=== PATIENT | female | born 1990 | race African-American/Black ===

== ENCOUNTER 2025-02-06 01:43 | Inpatient (IN) | payer OTHER ==
[2025-02-06] VITALS (13 sets, daily range): BP systolic 116–205; BP diastolic 72–144; PULSE 106–135; RESP 14–36; TEMP 97.3–98.6; O2SAT 94–99
[~2025-02-06] VITALS: Ht 165.1 cm; Wt 66.9 kg
[~2025-02-06 01:43] MED LIST: AMLO10TA13 PO; HYDR50TA4 PO; NO HOME MEDS; clonidine PO
[2025-02-06] MEDS: labetalol 20mg/4ml (5mg/ml) syringe IV ONE ×3 (02:27→09:19)
[2025-02-06] MEDS: ondansetron/PF 4mg/2ml inj IV ONE (02:28)
[2025-02-06 02:33] LABS: BASOPHILS % (AUTO) 0.5 % (0-1); EOSINOPHILS % (AUTO) 0 % (0-6); HEMATOCRIT 45.3 % (35.0-45.0); HEMOGLOBIN 14.6 g/dl (12.0-16.0); LYMPHOCYTES # (AUTO) 0.3 X10'3 (1.1-4.8); LYMPHOCYTES % (AUTO) 5.4 % (21-51); MEAN CORPUSCULAR HEMOGLOBIN 27.2 PG (27.0-31.0); MEAN CORPUSCULAR HGB CONC 32.4 g/dL (33.0-36.5); MONOCYTES # (AUTO) 0.1 X10'3 (0-0.9); MONOCYTES % (AUTO) 1.8 % (2-12); NEUTROPHILS # (AUTO) 4.8 X10'3 (1.8-7.7); NEUTROPHILS % (AUTO) 92.3 % (42-75); PLATELET COUNT 371 X10'3 (140-440); RED BLOOD COUNT 5.39 X10'6 (4.20-5.60); RED CELL DISTRIBUTION WIDTH 17.9 % (11.5-14.5); WHITE BLOOD COUNT 5.2 X10'3 (4.5-11.0)
[2025-02-06] MEDS: enalaprilat 1.25mg/ml 2ml vial IV ONE ×2 (03:33→09:45)
[2025-02-06] MEDS: midazolam 1 mg/ML 2ml injection IV ONE (03:34)
[2025-02-06 04:12] LABS: ALANINE AMINOTRANSFERASE 58 U/L (12-78); ALBUMIN 3.8 G/DL (3.4-5.0); ALBUMIN/GLOBULIN RATIO 0.6 (1.1-1.5); ALKALINE PHOSPHATASE 169 IU/L (46-116); ANION GAP 11 (8-16); ASPARTATE AMINO TRANSFERASE 40 U/L (10-37); BILIRUBIN,TOTAL 0.7 MG/DL (0.1-1.0); BLOOD UREA NITROGEN 13 MG/DL (7-18); BUN/CREATININE RATIO 14.3 (10.0-20.0); CALCIUM 9.3 MG/DL (8.5-10.1); CHLORIDE 94 MMOL/L (99-107); CREATININE 0.91 MG/DL (0.40-0.90); GLUCOSE 175 MG/DL (70-104); POTASSIUM 3.8 MMOL/L (3.5-5.1); SODIUM 132 MMOL/L (135-145); TOTAL CARBON DIOXIDE 27.5 MMOL/L (24-32); TOTAL PROTEIN 10.1 G/DL (6.4-8.2); eCRCL 77 ML/MIN; eGFR 70 ML/MIN
[2025-02-06 04:21] LABS: MAGNESIUM 1.8 MG/DL (1.5-2.4); PRO BRAIN NATRIURETIC PEPTIDE 594 PG/ML (0-125)
[2025-02-06] MEDS: aspirin 81mg tab.chew PO ONE (04:53)
[2025-02-06] MEDS: niCARDipine-NS 40mg/200ml IVPB 200 ML IV SCH ×2 (04:54→09:46)
[2025-02-06] MEDS ORDERED: proCHLORperazine 10 MG/2 ml inj IV PRN (05:50)
[2025-02-06] MEDS ORDERED: potassium Cl 20 mEq SR tablet PO PRN (06:10)
[2025-02-06] MEDS ORDERED: magnesium sulf-water 2g/50mL 50 ML IV PRN (06:10)
[2025-02-06] MEDS ORDERED: magnesium Cl slow-release 64mg tablet PO PRN (06:10)
[2025-02-06] MEDS ORDERED: magnesium sulf-water 4G/100mL 100 ML IV PRN (06:10)
[2025-02-06] MEDS ORDERED: potassium Cl 40MEQ/1/2NS 520ml 520 ML IV PRN (06:10)
[2025-02-06] MEDS: nicotine 21mg patch - 24 hr TD ONE (06:35)
[2025-02-06] MEDS: proCHLORperazine 10 MG/2 ml inj IV ONE (06:36)
[2025-02-06] MEDS: ketorolac trometh 15mg/ml vial 15 MG/ML ML IV ONE (06:36)
[2025-02-06] MEDS: diphenhydrAMINE 50 mg/ml inj IV ONE (06:36)
[2025-02-06] MEDS: normal saline 1000ml 1,000 ML IV SCH ×2 (06:45→15:26)
[2025-02-06] MEDS ORDERED: diltiazem-NS 100mg/100ml 100 ML IV SCH (07:50)
[2025-02-06] MEDS: heparin, porcine 5000 units/ml vial SQ SCH (08:00)
[2025-02-06] MEDS: K and/or MAG REPLACEMENT MC SCH (08:00)
[2025-02-06] MEDS: diltiazem-NS 100mg/100ml 100 ML IV SCH (08:10)
[2025-02-06] MEDS: losartan 50mg tablet PO SCH (08:47)
[2025-02-06] MEDS ORDERED: morphine 2 MG/ML inj. syringe IV PRN (09:10)
[2025-02-06] MEDS: morphine 2 MG/ML inj. syringe IV PRN (09:20)
[2025-02-06 09:24] LABS: URINE AMPHETAMINE SCREEN NEGATIVE (Neg); URINE BARBITUATE SCREEN NEGATIVE (Neg); URINE BENZODIAZEPINES SCREEN POSITIVE (Neg); URINE CANNABINOID SCREEN NEGATIVE (Neg); URINE COCAINE SCREEN NEGATIVE (Neg); URINE METHADONE SCREEN NEGATIVE (Neg); URINE OPIATE SCREEN NEGATIVE (Neg); URINE PHENCYCLIDINE SCREEN NEGATIVE (Neg)
[2025-02-06] MEDS ORDERED: iohexol 300mg/ml 100ml inj. ONE (09:28)
[2025-02-06 09:43] LABS: CREATINE KINASE 203 U/L (26-192)
[2025-02-06 10:34] LABS: URINE HCG NEGATIVE (NEG)
[2025-02-06] MEDS ORDERED: UNABLE TO OBTAIN (11:13)
[2025-02-06] MEDS: amLODIPine 5mg tablet PO ONE (15:53)
[2025-02-06] MEDS ORDERED: LORazepam 2 mg/ml vial IV PRN (20:20)
[2025-02-06] MEDS: diazepam 2mg tablet PO PRN (21:30)
[2025-02-07] VITALS (15 sets, daily range): BP systolic 100–196; BP diastolic 40–130; PULSE 96–117; RESP 14–40; TEMP 98.2–100; O2SAT 90–100
[2025-02-07] MEDS: losartan 50mg tablet PO ONE (04:23)
[2025-02-07] MEDS: losartan 50mg tablet PO SCH (07:28)
[2025-02-07] MEDS: HYDROchlorothiazide 12.5mg capsule PO SCH (07:28)
[2025-02-07] MEDS: metoprolol tartrate 1mg/ml inj IV ONE (10:55)
[2025-02-07] MEDS: bisacodyl 10mg suppository rectal RC STA (16:05)
[2025-02-07 17:09] LABS: ALANINE AMINOTRANSFERASE 46 U/L (12-78); ALBUMIN 3.3 G/DL (3.4-5.0); ALBUMIN/GLOBULIN RATIO 0.7 (1.1-1.5); ALKALINE PHOSPHATASE 123 IU/L (46-116); ANION GAP 8 (8-16); ASPARTATE AMINO TRANSFERASE 67 U/L (10-37); BLOOD UREA NITROGEN 28 MG/DL (7-18); BUN/CREATININE RATIO 19.4 (10.0-20.0); CALCIUM 8.9 MG/DL (8.5-10.1); CHLORIDE 99 MMOL/L (99-107); CHOL/HDL RATIO 2.4 (0.00-4.99); CHOLESTEROL 193 MG/DL (0-200); CREATININE 1.44 MG/DL (0.40-0.90); GLUCOSE 77 MG/DL (70-104); HDL CHOLESTEROL 79 MG/DL (35-60); LDL CHOLESTEROL 90 MG/DL (50-100); MAGNESIUM 2.3 MG/DL (1.5-2.4); PHOSPHORUS 2.6 MG/DL (2.3-4.5); POTASSIUM 3.6 MMOL/L (3.5-5.1); SODIUM 132 MMOL/L (135-145); TOTAL CARBON DIOXIDE 25.5 MMOL/L (24-32); TOTAL PROTEIN 8.2 G/DL (6.4-8.2); TRIGLYCERIDES 108 MG/DL (20-135); eCRCL 49 ML/MIN; eGFR 50 ML/MIN
[2025-02-07 17:22] LABS: BILIRUBIN,TOTAL 0.4 MG/DL (0.1-1.0)
[2025-02-07] MEDS: acetaminophen 325mg tablet PO ONE (23:57)
[2025-02-07] MEDS: amLODIPine 5mg tablet PO ONE (23:57)
[2025-02-08] VITALS (15 sets, daily range): BP systolic 90–198; BP diastolic 43–139; PULSE 73–111; RESP 14–28; TEMP 97.5–98.4; O2SAT 98–100
[2025-02-08] MEDS: labetalol 20mg/4ml (5mg/ml) syringe IV ONE (05:45)
[2025-02-08] MEDS: labetalol 20mg/4ml (5mg/ml) syringe IV STA (07:43)
[2025-02-08] MEDS: labetalol 100mg tablet PO SCH (07:44)
[2025-02-08] MEDS: hyDRALAzine 10mg tablet PO SCH (07:45)
[2025-02-08] MEDS: amLODIPine 5mg tablet PO SCH (07:45)
[2025-02-08 08:15] LABS: BASOPHILS % (AUTO) 0.6 % (0-1); EOSINOPHILS % (AUTO) 0.1 % (0-6); HEMATOCRIT 38.3 % (35.0-45.0); HEMOGLOBIN 12.7 g/dl (12.0-16.0); LYMPHOCYTES # (AUTO) 1.5 X10'3 (1.1-4.8); LYMPHOCYTES % (AUTO) 21.3 % (21-51); MEAN CORPUSCULAR HEMOGLOBIN 27.3 PG (27.0-31.0); MEAN CORPUSCULAR HGB CONC 33.1 g/dL (33.0-36.5); MEAN CORPUSCULAR VOLUME 82.5 FL (78-98); MONOCYTES # (AUTO) 0.7 X10'3 (0-0.9); MONOCYTES % (AUTO) 9.6 % (2-12); NEUTROPHILS # (AUTO) 4.7 X10'3 (1.8-7.7); NEUTROPHILS % (AUTO) 68.4 % (42-75); PLATELET COUNT 375 X10'3 (140-440); RED BLOOD COUNT 4.64 X10'6 (4.20-5.60); RED CELL DISTRIBUTION WIDTH 17.6 % (11.5-14.5); WHITE BLOOD COUNT 6.9 X10'3 (4.5-11.0)
[2025-02-08 08:52] LABS: ALANINE AMINOTRANSFERASE 38 U/L (12-78); ALBUMIN/GLOBULIN RATIO 0.6 (1.1-1.5); ALKALINE PHOSPHATASE 111 IU/L (46-116); ANION GAP 7 (8-16); ASPARTATE AMINO TRANSFERASE 49 U/L (10-37); BILIRUBIN,TOTAL 0.4 MG/DL (0.1-1.0); BLOOD UREA NITROGEN 16 MG/DL (7-18); BUN/CREATININE RATIO 17.2 (10.0-20.0); CALCIUM 8.4 MG/DL (8.5-10.1); CHLORIDE 100 MMOL/L (99-107); CREATININE 0.93 MG/DL (0.40-0.90); GLUCOSE 113 MG/DL (70-104); POTASSIUM 3.2 MMOL/L (3.5-5.1); SODIUM 134 MMOL/L (135-145); eCRCL 75 ML/MIN; eGFR 83 ML/MIN
[2025-02-08 08:54] LABS: MAGNESIUM 2.1 MG/DL (1.5-2.4); PHOSPHORUS 2.7 MG/DL (2.3-4.5)
[2025-02-08] MEDS: potassium Cl 20 mEq SR tablet PO PRN (13:08)
[2025-02-08] MEDS ORDERED: naloxone 0.4 mg/ml inj IV PRN (13:30)
[2025-02-08] MEDS ORDERED: mineral oil 133ml enema RC PRN (13:30)
[2025-02-08] MEDS: sennosides/docusate sodium tablet PO ONE (14:19)
[2025-02-08] MEDS: nicotine 21mg patch - 24 hr TD ONE (17:45)
[2025-02-08] MEDS: sennosides/docusate sodium tablet PO SCH (19:49)
[2025-02-09 02:00] VITALS: BP 157/91; PULSE 89; RESP 23; TEMP 97.5; O2SAT 100
[2025-02-09] MEDS: morphine 2 MG/ML inj. syringe IM ONE (04:23)
[2025-02-09 06:30] VITALS: BP 170/127; PULSE 100; RESP 12; TEMP 97.5; O2SAT 100
[2025-02-09] MEDS ORDERED: nicotine 21mg patch - 24 hr TD SCH (08:00)
== END 2025-02-09 06:55 | disposition left against medical advice (07) | DRG 280 ==
LOC: EDBD 01:45 → ER 01:45 → ED HOLD 05:28 → PCU 3S 11:45
PROVIDERS: ADMIT Internal Medicine; ATTEND Internal Medicine
PROC: BW211ZZ Computerized Tomography (CT Scan) of Abdomen and Pelvis using Low Osmolar Contrast (ICD-10-PCS; principal; 2025-02-06)
DX: I16.1 Hypertensive emergency (principal); N17.0 Acute kidney failure with tubular necrosis; I21.A1 Myocardial infarction type 2; E87.1 Hypo-osmolality and hyponatremia; F17.210 Nicotine dependence, cigarettes, uncomplicated; E86.0 Dehydration; I10 Essential (primary) hypertension; Z53.21 Procedure and treatment not carried out due to patient leaving prior to being seen by health care provider; F19.10 Other psychoactive substance abuse, uncomplicated
CPT/HCPCS: 36415; 71045; 74177; 80053; 80061; 80305; 81025; 82550; 83036; 83735; 83880; 84100; 84145; 84484; 85025; 85651; 87081; 93005; 93308; 97161; 97530; 99285; G0378; J0780; J1200; J1644; J1885; J2250; J2270; J2405; J3490; J7030; Q9967

== ENCOUNTER 2025-04-28 11:30 | Inpatient (IN) | payer MEDICAID ==
[~2025-04-28] VITALS: Ht 165.1 cm; Wt 70.0 kg
[~2025-04-28 11:30] MED LIST changes: +UNABLE TO OBTAIN
--- NOTE | 2025-04-28 12:00 | Physician Documentation ---
History of Present Illness ~ Chief Complaint: Multiple Medical Complaints Stated Complaint: GENERAL Time Seen by MD: 11:47 HPI 35-year-old female, history of polysubstance abuse, hypertension, who presents with altered mental status and vomiting Initial history is very limited due to the patient's clinical condition. She will not really answer most of my questions except for nodding her head yes or no. She answers yes when asked if she has a headache, and dysuria She answers no when I asked her if she has chest pain, shortness of breath, abdominal pain She does not answer when I ask if she has been using drugs or other substances. Medication Reconciliation Allergies: Coded Allergies: No Known Allergies (Unverified , 02/06/25) Scheduled Amlodipine Besylate (Amlodipine Besylate), 1 TAB PO DAILY Hydrochlorothiazide (Hydrochlorothiazide), 1 TAB PO DAILY [clonidine], 0.2 MG PO TID Miscellaneous Medications Home Med List (No Home Medications), (Reported) Unable to Obtain Medications (Unable to Obtain Medications), (Reported) Past Medical History Past Medical History: Hypertension Past Surgical History: no surgical history Drug Use: other Lives In: Home Review of Systems Unable to obtain complete ROS: altered mental status Physical Exam Vital Signs: Temperature: 97.8, Source: Axillary, Heart Rate: 105, Respiratory Rate: 17, BP: 181/136, Pulse Oximetry: 93, Weight: 70.000 Physical Exam General: This is a thin young woman new lying in bed, looking at me with her eyes open but not really answering my questions HEENT: Atraumatic, oropharynx appears dry with cracked lips Heart: Tachycardic, appears regular Lungs: Diminished breath sounds bilateral, normal work of breathing, normal oxygen saturation on room air Abdomen: Soft, nondistended, nontender all quadrants Extremities: Warm and well-perfused. No significant traumatic findings Neuro: The patient is alert, but does not answer all of my questions. She does move all 4 extremities. Later she was noted to walk without significant difficulty Psychiatric: Appears tired and mildly sedated Progress Results/Orders Results/Orders Orders - ELIZABETH LOVETT MD Page Hospitalist (04/28/25 18:31) Fill Out Med Reconciliation (04/28/25 18:31) Drug Screen, Urine (04/28/25 18:32) Medications Received in ER Medications (Trade) Dose Ordered Sig/Alida Route PRN Reason Start Time Stop Time Status Last Admin Dose Admin Sodium Chloride 1,000 ml @ 1,000 mls/hr ONCE ONCE IV 04/28/25 13:15 04/28/25 14:14 DC 04/28/25 13:49 1,000 MLS/HR Sodium Chloride 1,000 ml @ 1,000 mls/hr ONCE ONCE IV 04/28/25 15:35 04/28/25 16:34 DC 04/28/25 15:58 1,000 MLS/HR (Trandate 20 mg/ 4ml syringe) 20 mg ONCE ONCE IV 04/28/25 16:40 04/28/25 16:41 DC 04/28/25 16:48 20 MG (Catapres tablet) 0.2 mg ONCE ONCE PO 04/28/25 17:55 04/28/25 17:57 DC 04/28/25 18:05 0.2 MG (Norvasc tablet) 10 mg DAILY PO 04/28/25 20:00 04/28/25 20:38 10 MG Vital Signs 04/28/25 04/28/25 04/28/25 04/28/25 11:38 13:12 13:15 14:48 Temp 97.8 Pulse 105 111 110 Resp 17 17 B/P (MAP) 181/136 183/148 (160) 236/109 (151) Pulse Ox 93 100 97 04/28/25 04/28/25 04/28/25 04/28/25 15:58 17:45 18:35 20:38 Pulse 110 79 92 Resp 17 17 16 B/P (MAP) 245/170 (195) 175/126 (142) Pulse Ox 98 100 Laboratory Tests Test 04/28/25 12:33 White Blood Count 10.9 Red Blood Count 5.58 Hemoglobin 15.4 Hematocrit 46.2 H Mean Corpuscular Volume 82.8 Mean Corpuscular Hemoglobin 27.5 Mean Corpuscular Hemoglobin Concent 33.2 Red Cell Distribution Width 15.6 H Platelet Count 525 H Mean Platelet Volume 7.5 Neutrophils (%) (Auto) 84.3 H Lymphocytes (%) (Auto) 10.2 L Monocytes (%) (Auto) 5.5 Eosinophils (%) (Auto) 0 Basophils (%) (Auto) 0 Neutrophils # (Auto) 9.2 H Lymphocytes # (Auto) 1.1 Monocytes # (Auto) 0.6 Eosinophils # (Auto) 0.0 Basophils # (Auto) 0.0 CBC Comment Sodium Level 141 Potassium Level 3.1 L Chloride Level 100 Carbon Dioxide Level 30.5 Anion Gap 11 Blood Urea Nitrogen 41 H Creatinine 1.49 H Estimated GFR/1.73 m2 48 BUN/Creatinine Ratio 27.5 H Glucose Level 121 H Calcium Level 9.6 Total Bilirubin 0.7 Aspartate Amino Transf (AST/SGOT) 22 Alanine Aminotransferase (ALT/SGPT) 25 Alkaline Phosphatase 155 H Total Protein 9.7 H Albumin 4.1 Globulin 5.6 H Albumin/Globulin Ratio 0.7 L Lipase 82 H Human Chorionic Gonadotropin, Qual Negative Chemistry Comments Ethyl Alcohol Level < 10 EKG/XRAY/CT/US/VASC/MRI CT : Impression I personally reviewed the CT scan, and this shows no fracture, intracranial hemorrhage, or mass Medical Decision Making Additional info obtained from: old records Findings Per chart review, the patient was recently admitted to the hospital with severe hypertension. She was treated with multiple medications, eventually a nicardipine drip. She left AMA couple of days ago. Additional Comments Differential includes substance use or intoxication, hypertensive emergency or urgency, dehydration, acute kidney injury, electrolyte derangement, UTI, sepsis, head injury or intracranial hemorrhage Assessment The patient presents with altered mental status and vomiting. On exam she appears dehydrated and possibly has been using drugs. Her lab testing shows an acute kidney injury, consistent with dehydration. She was given IV fluids. Head CT without acute process. While here in the ED, Her blood pressure became significantly elevated. On chart review she has a history of uncontrolled hypertension. She was treated with IV labetalol and oral clonidine. She is in agreement with admission to the hospital for further management of her blood pressure. Medicine team will be consulted for admission. Departure Admitted to Inpatient Unit: yes, to hospitalist Impression: Primary Impression: Hypertensive urgency Additional Impressions: ANATOLIY (acute kidney injury) Altered mental status Referrals: NO PRIMARY CARE PROVIDER (PCP) Signature Scribe Signature: romeo Attestation: TAMEKA Cruz MD Apr 28, 2025 12:00 ELIZABETH LOVETT MD Apr 28, 2025 20:41
[2025-04-28 12:49] LABS: BASOPHILS % (AUTO) 0 % (0-1); EOSINOPHILS % (AUTO) 0 % (0-6); HEMATOCRIT 46.2 % (35.0-45.0); HEMOGLOBIN 15.4 g/dl (12.0-16.0); LYMPHOCYTES # (AUTO) 1.1 X10'3 (1.1-4.8); LYMPHOCYTES % (AUTO) 10.2 % (21-51); MEAN CORPUSCULAR HEMOGLOBIN 27.5 PG (27.0-31.0); MEAN CORPUSCULAR HGB CONC 33.2 g/dL (33.0-36.5); MEAN CORPUSCULAR VOLUME 82.8 FL (78-98); MEAN PLATELET VOLUME 7.5 FL (7.4-10.4); MONOCYTES # (AUTO) 0.6 X10'3 (0-0.9); MONOCYTES % (AUTO) 5.5 % (2-12); NEUTROPHILS # (AUTO) 9.2 X10'3 (1.8-7.7); NEUTROPHILS % (AUTO) 84.3 % (42-75); PLATELET COUNT 525 X10'3 (140-440); RED BLOOD COUNT 5.58 X10'6 (4.20-5.60); RED CELL DISTRIBUTION WIDTH 15.6 % (11.5-14.5); WHITE BLOOD COUNT 10.9 X10'3 (4.5-11.0)
[2025-04-28 13:02] LABS: ALANINE AMINOTRANSFERASE 25 U/L (12-78); ALBUMIN 4.1 G/DL (3.4-5.0); ALBUMIN/GLOBULIN RATIO 0.7 (1.1-1.5); ALKALINE PHOSPHATASE 155 IU/L (46-116); ANION GAP 11 (8-16); ASPARTATE AMINO TRANSFERASE 22 U/L (10-37); BILIRUBIN,TOTAL 0.7 MG/DL (0.1-1.0); BLOOD UREA NITROGEN 41 MG/DL (7-18); BUN/CREATININE RATIO 27.5 (10.0-20.0); CALCIUM 9.6 MG/DL (8.5-10.1); CHLORIDE 100 MMOL/L (99-107); CREATININE 1.49 MG/DL (0.40-0.90); ETHANOL < 10 MG/DL (<10); GLUCOSE 121 MG/DL (70-104); LIPASE 82 U/L (16-77); POTASSIUM 3.1 MMOL/L (3.5-5.1); SODIUM 141 MMOL/L (135-145); TOTAL CARBON DIOXIDE 30.5 MMOL/L (24-32); TOTAL PROTEIN 9.7 G/DL (6.4-8.2); eCRCL 47 ML/MIN; eGFR 48 ML/MIN
[2025-04-28 13:19] LABS: HCG SERUM QL NEGATIVE
[2025-04-28] MEDS: normal saline 1000ml 1,000 ML IV ONE ×2 (13:49→15:58)
[2025-04-28] MEDS: labetalol 20mg/4ml (5mg/ml) syringe IV ONE (16:48)
--- NOTE | 2025-04-28 17:34 | RADIOLOGY REPORT ---
COMPUTERIZED TOMOGRAPHY OF THE HEAD WITHOUT CONTRAST REASON FOR STUDY: Altered mental status, hypertension COMPARISON: None TECHNIQUE: Helical tomographic scans were obtained through the brain. 2-D coronal and sagittal refor matted images are provided. Automated exposure control was used. RADIATION DOSE: CTDI: 53 mGy DLP: 888 mGy-cm FINDINGS: No suspicious intracranial hyperdensity to suggest acute blood. There is no mass effect n or midline shift. There is no hydrocephalus. The suprasellar cistern is intact. The calvarium is inta ct. The visualized mastoid air cells and paranasal sinuses are clear. IMPRESSION: No acute intracranial abnormality.
[2025-04-28] MEDS: cloNIDine 0.1 mg tablet PO ONE (18:05)
[2025-04-28] MEDS ORDERED: acetaminophen 325mg tablet PO PRN (20:25)
[2025-04-28] MEDS ORDERED: magnesium Cl slow-release 64mg tablet PO PRN (20:25)
[2025-04-28] MEDS ORDERED: magnesium sulf-water 2g/50mL 50 ML IV PRN (20:25)
[2025-04-28] MEDS ORDERED: magnesium sulf-water 4G/100mL 100 ML IV PRN (20:25)
[2025-04-28] MEDS ORDERED: potassium Cl 20 mEq SR tablet PO PRN (20:25)
[2025-04-28] MEDS ORDERED: potassium Cl 40MEQ/1/2NS 520ml 520 ML IV PRN (20:25)
[2025-04-28] MEDS: amLODIPine 5mg tablet PO SCH (20:38)
[2025-04-28] MEDS: normal saline 1000ml 1,000 ML IV SCH (20:47)
--- NOTE | 2025-04-28 20:57 | HISTORY AND PHYSICAL-Residence ---
History & Physical Providers to Resident Creating Document: MARIA ESTHER VILLANUEVA RES ~ History of Present Illness Primary Medical Doctor: none Reason for Admit\Complaint: Altered mentation, high blood pressure History of Present Illness This is a 35-year-old female with a known history of polysubstance use including fentanyl and methamphetamine use two days ago, chronic hypertension, and prior episodes of hypertensive emergency. She presents today with altered mental status, headache, vomiting started today. She denies chest pain, shortness of breath, or visual disturbance. On exam, although she was minimally cooperative, she was alert, oriented, and able to follow commands. No focal neurological deficits were appreciated. Of note, she was admitted to [facility] on February 06, 2025 for a similar presentation, during which she was diagnosed with hypertensive emergency, prerenal acute kidney injury, and electrolyte disturbance. However, she left AMA at that time. She is known to be nonadherent to antihypertensive medications a legs access to primary care. Allergies: Coded Allergies: No Known Allergies (Unverified , 02/06/25) Home Medications Home Medications Active Hydrochlorothiazide 50 Mg Tablet 1 Tab PO DAILY 30 Days Amlodipine Besylate 10 Mg Tablet 1 Tab PO DAILY 30 Days [clonidine] 0.2 Mg PO TID 30 Days Reported Unable to Obtain Medications (Non-Formulary Medication) Each pt not talking, uncoopertive No Home Medications (Home Med List) Each Past Medical History Past Medical History Hypertension, polysubstance use disorder Past Surgical History Surgical History Comment Not contributory Past Social History Social History Comment Smokes one pack of cigarettes a day for the last three years Uses methamphetamine and fentanyl Denies alcohol use Drug Use: Other Lives In: Home ROS All Other Systems: Reviewed and Negative ROS As stated above in the HPI, otherwise all systems are reviewed and negative. Unable to obtain: altered mental status Exam Vitals: Vital Signs Date Time Temp Pulse Resp B/P (MAP) Pulse Ox O2 Delivery O2 Flow Rate FiO2 04/28/25 18:35 16 04/28/25 17:45 79 100 04/28/25 11:38 97.8 General: Awake and Alert, mild distress HEENT: Conjunctiva pink, Sclera clear, Mucus Membranes moist. Neck: Supple without masses and tenderness. Resp: Unlabored. Lungs clear to auscultation bilaterally. Heart: Regular Rate and rhythm, normal S1 and S2 without murmur, rub or gallop. Abdomen: Soft and non tender no organomegaly Extremities: No cyanosis,clubbing or edema. Skin: Warm and Dry. Diagnostic Data Last Recorded Lab Results: 04/28/25 1233 04/28/25 1233 Advance Care Planning Advanced Care plannin - 30 Minutes Additional Plan Hypertensive emergency Hypertensive encephalopathy vs toxic metabolic encephalopathy Presents with severely elevated blood pressure; 236/109 along with symptoms of altered mental status, headache, and vomiting, consistent with hypertensive encephalopathy, however, patient also recently use fentanyl and methamphetamine; could be combination of both. No focal neurological deficits; alert and oriented but intermittently uncooperative . CT head negative Received clonidine 0.2 mg p.o. and labetalol 20 mg IV in ED Goals: - First hour: Reduce BP by max. 25% to prevent coronary insufficiency and to ensure adequate cerebral perfusion pressure. - 26 hours: Reduce BP to 160/221173 mm Hg. - Next 2448 hours: Reduce BP to the patient's baseline. Continue close BP monitoring Transition to oral region i.e. lisinopril 20 mg p.o. daily and amlodipine 10 mg p.o. daily Acute kidney injury, likely prerenal; renal tubular stasis Monitor creatinine and urine output IV hydration; NS 50 mL/hours Follow urine lytes Elevated proBNP No clinical or radiographic evidence of volume overload; no pulmonary vascular congestion on CXR, no peripheral edema or JVD Monitor Elevated troponin, likely type 2 MD/demand ischemia Monitor subsequent troponins Polysubstance use disorder Medication nonadherence and poor access to care Methamphetamine and fentanyl; use two days ago Likely trigger for hypertensive crisis Monitor for withdrawal symptoms Substance use navigator consult requested park services specialist consult requested No current PCP; history of leaving AMA Case management referral for follow up and establishing primary care Code status: Full code DVT prophylaxis: Heparin subQ Maria Esther Villanueva Internal Medicine 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 Attestation of HP only, care immediately directed to hospitalist team - HTN urgency - SBP goal 180-200 for next 36 hrs then decrease again by 20% - Subtance abuse Patient seen through remote audiovisual assessment through HIPAA compliant setup. All labs, flowsheets, and images reviewed. Date of Service: Apr 28, 2025 Billing Provider: TAYLOR RAMIREZ Jr. DO MARIA ESTHER VILLANUEVA, RES Apr 28, 2025 20:57 TAYLOR RAMIREZ Jr. DO Apr 29, 2025 04:05
--- NOTE | 2025-04-28 21:48 | RADIOLOGY REPORT ---
EXAM: DI CHEST,SINGLE VIEW TECHNIQUE: Single frontal chest radiograph CLINICAL HISTORY: HTN emergency COMPARISON: DI CHEST,SINGLE VIEW on DOS: 02/06/25 Findings/Impression: Frontal chest radiograph demonstrates no acute osseous or superficial soft tissue abnormalities. The trachea is midline. The cardiac silhouette and mediastinum are within normal limits. No pneumothorax, pleural effusions, or consolidations.
[2025-04-28 22:10] VITALS: BP 196/127; PULSE 90; RESP 22; TEMP 99.1; O2SAT 100
[2025-04-28] MEDS: lisinopril 20mg tablet PO SCH (23:09)
[2025-04-28] MEDS: potassium Cl 20 mEq SR tablet PO PRN (23:09)
[2025-04-28] MEDS: niCARDipine-NS 40mg/200ml IVPB 200 ML IV SCH (23:13)
[2025-04-28 23:15] VITALS: BP 174/112; PULSE 85
[2025-04-28 23:30] VITALS: BP 183/118; PULSE 88
[2025-04-28 23:45] VITALS: BP 183/115; PULSE 97
[2025-04-29] VITALS (19 sets, daily range): BP systolic 96–176; BP diastolic 53–114; PULSE 83–114; RESP 12–28; TEMP 97.5–99; O2SAT 95–98
[2025-04-29] MEDS: hydrALAZINE 20mg/ml inj. IV PRN (04:12)
[2025-04-29] MEDS: LORazepam 2 mg/ml vial IV PRN (04:59)
[2025-04-29 07:28] LABS: BILIRUBIN,URINE NEGATIVE (Neg); CLARITY,URINE CLEAR (Clear); COLOR,URINE YELLOW (Yellow); GLUCOSE, URINE 250 mg/dl (Neg); KETONES,URINE NEGATIVE (Neg); LEUKOCYTE ESTERASE ,URINE NEGATIVE (Neg); NITRITES, URINE NEGATIVE (Neg); OCCULT BLOOD,URINE NEGATIVE (Neg); PROTEIN,URINE NEGATIVE (Neg); UROBILINOGEN,URINE 0.2 E.U/dL (0.2-1.0)
[2025-04-29 07:33] LABS: UA COLLECTION TYPE CLN CATCH MIDSTREAM
[2025-04-29 07:34] LABS: URINE AMPHETAMINE SCREEN NEGATIVE (Neg); URINE BARBITUATE SCREEN NEGATIVE (Neg); URINE BENZODIAZEPINES SCREEN NEGATIVE (Neg); URINE CANNABINOID SCREEN NEGATIVE (Neg); URINE COCAINE SCREEN NEGATIVE (Neg); URINE METHADONE SCREEN NEGATIVE (Neg); URINE OPIATE SCREEN NEGATIVE (Neg); URINE PHENCYCLIDINE SCREEN NEGATIVE (Neg)
[2025-04-29 07:49] LABS: BASOPHILS % (AUTO) 0.5 % (0-1); EOSINOPHILS % (AUTO) 0.1 % (0-6); HEMATOCRIT 43.9 % (35.0-45.0); HEMOGLOBIN 14.4 g/dl (12.0-16.0); LYMPHOCYTES # (AUTO) 1.5 X10'3 (1.1-4.8); LYMPHOCYTES % (AUTO) 20.3 % (21-51); MEAN CORPUSCULAR HEMOGLOBIN 27.1 PG (27.0-31.0); MEAN CORPUSCULAR HGB CONC 32.9 g/dL (33.0-36.5); MEAN CORPUSCULAR VOLUME 82.2 FL (78-98); MEAN PLATELET VOLUME 7.5 FL (7.4-10.4); MONOCYTES # (AUTO) 0.3 X10'3 (0-0.9); MONOCYTES % (AUTO) 3.6 % (2-12); NEUTROPHILS # (AUTO) 5.7 X10'3 (1.8-7.7); NEUTROPHILS % (AUTO) 75.5 % (42-75); PLATELET COUNT 390 X10'3 (140-440); RED BLOOD COUNT 5.34 X10'6 (4.20-5.60); RED CELL DISTRIBUTION WIDTH 15.4 % (11.5-14.5); WHITE BLOOD COUNT 7.5 X10'3 (4.5-11.0)
[2025-04-29] MEDS: K and/or MAG REPLACEMENT MC SCH (08:00)
[2025-04-29] MEDS ORDERED: amLODIPine 5mg tablet PO SCH (08:05)
[2025-04-29 08:08] LABS: ALANINE AMINOTRANSFERASE 24 U/L (12-78); ALBUMIN 3.5 G/DL (3.4-5.0); ALBUMIN/GLOBULIN RATIO 0.7 (1.1-1.5); ALKALINE PHOSPHATASE 124 IU/L (46-116); ANION GAP 8 (8-16); ASPARTATE AMINO TRANSFERASE 38 U/L (10-37); BILIRUBIN,TOTAL 0.8 MG/DL (0.1-1.0); BLOOD UREA NITROGEN 18 MG/DL (7-18); BUN/CREATININE RATIO 17.3 (10.0-20.0); CALCIUM 8.7 MG/DL (8.5-10.1); CHLORIDE 101 MMOL/L (99-107); CREATININE 1.04 MG/DL (0.40-0.90); GLUCOSE 88 MG/DL (70-104); POTASSIUM 3.3 MMOL/L (3.5-5.1); SODIUM 136 MMOL/L (135-145); TOTAL CARBON DIOXIDE 27.4 MMOL/L (24-32); TOTAL PROTEIN 8.3 G/DL (6.4-8.2); eCRCL 67 ML/MIN; eGFR 72 ML/MIN
--- NOTE | 2025-04-29 08:08 | PROGRESS NOTE ---
Daily Progress Note Providers to CC ~ Antibiotic Timeout Antibiotic Ordered?: No Subjective cc-Patient is sleeping comfortably, initially difficult to arouse mid when forced open up arise starts crying excessively does not verbalize any chief complaints Review of systems unable to be obtained Objective Vital Signs Date Time Temp Pulse Resp B/P (MAP) Pulse Ox O2 Delivery O2 Flow Rate FiO2 04/29/25 06:00 97.8 94 22 169/95 (119) 97 Room Air 04/28/25 20:47 0 Result Diagram: 04/29/25 0730 04/28/25 1233 Alert and oriented times 0 in mild distress patient unable to verbalize and explain what her depressive in why she is crying if she then ate any pain or any discomfort Baseline unknown HEENT normocephalic nontraumatic head with periorbital edema CVS- first and second heart sounds were positive with a loud 4/6 systolic murmur best heard in the left sternal border Respiratory system is decreased breath sounds bilateral bases with minimal crackles Abdomen is soft scaphoid benign bowel sounds are positive nontender nondistended extremities-bilateral plus one edema Problem\Assessment\Plan Assessment and plan -hypertensive emergency Continue home med with lisinopril Use clonidine and hydralazine p.r.n. Restart Norvasc -systolic murmur check echocardiogram Also will help rule out CHF -acute renal failure Secondary to dehydration Resolved -hypokalemia Replace per protocol --history of polysubstance abuse Of substance abuse navigator consulted --the her home continue with DVT prophylaxis --patient crying Need to contact family members to see what her baseline is By default full continue full code for now Date of Service: Apr 29, 2025 Billing Provider: CASANDRA MUELLER MD Common Visit Codes: [id number] INP/OBS CARE(HIGH) CASANDRA MUELLER MD Apr 29, 2025 08:08
[2025-04-29] MEDS: amLODIPine 5mg tablet PO SCH (08:43)
[2025-04-29] MEDS: heparin, porcine 5000 units/ml vial SQ SCH (08:44)
[2025-04-29] MEDS: ondansetron/PF 4mg/2ml inj IV PRN (10:40)
[2025-04-29] MEDS: naloxone 0.4 mg/ml inj ONE (11:05)
--- NOTE | 2025-04-29 18:57 | CARDIOLOGY REPORT ---
APPROVED REPORT EXAM: Comprehensive 2D, Doppler, and color-flow Echocardiogram. Patient Location: [facility] Blood Pressure: 169/95 mmHg Heart Rate: 92 bpm Rhythm: NSR Indications Murmur No archival studies professor Previous echo 02/06/25 70-75% EF 2D Dimensions LA Diam2.5 cm IVSd 1.4 (0.7-1.1cm) LVDd 3.5 cm PWd 1.4 (0.7-1.1cm) IVSs 1.6 (0.8-1.2cm) LVDs 2.1 (2.5-4.0cm) Aortic Root(2D) 3.0 cm PWs 1.5 (0.8-1.2cm) LVOT Diameter 2.01 (1.8-2.4cm) LVEF(%) 70.8 (>50%) Ao Asc Diam.2.81 cmIVC 11.12 mm FS (%) 39.2 % SV 36.1 ml CO 3.4 L/min M-Mode Dimensions MV EPSS 0.4 (<0.5cm) Aortic Valve AoV Peak Adam. 167.4 cm/s AoV VTI 23.8 cm AO Peak GR. 11.2 mmHg AO Mean GR. 7 mmHg LVOT VTI 21.02 cm LVOT Peak Adam. 128.1 cm/s CRISTIAN(VTI)/BSA 2.80 cm2/m2 CRISTIAN (VTI) 2.80 cm2 Mitral Valve MV E Velocity 66.0 cm/s MV Peak Gr. 4 mmHg MV DECEL TIME 116 ms MV A Velocity 78.3 cm/s MV PHT 44 ms E/A Ratio 0.8 MVA (PHT) 5.00 cm2 MV VMax98.4 cm/s TDI Medial E' P. V 6.69 cm/s E/Medial E' 9.9 Tricuspid Valve TR P. Velocity 310 cm/s RAP ESTIMATE 10 mmHg TR Peak Gr. 38 mmHg RVSP 48 mmHg Pulmonary Vein S1 Velocity 94.6 cm/s D2 Velocity 72.9 cm/s PVa Ryyitnby10.5 cm/s PVa [id number] msec LEFT VENTRICLE LV is small in size with moderate concentric hypertrophy. Overall systolic function is hyperdynamic w ith a resting LV gradient of 28 mmHG, pt unable to valsalva due to ALOC. LVEF is 80%. RIGHT VENTRICLE RV appears normal in size and hyperdynamic. RVSP is estimated at 48 mmHG. ATRIA The left atrium size is normal. AORTIC VALVE Trileaflet AV appears sclerotic without stenosis. No insufficiency. MITRAL VALVE MV is thickened with no annular calcification or stenosis. Trace mitral regurgitation. TRICUSPID VALVE The tricuspid valve is normal is thickened with bowing. Trace to mild tricuspid regurgitation PULMONIC VALVE The pulmonary valve is normal in structure. Trace pulmonic regurgitation. GREAT VESSELS The aortic root is normal in size. The ascending aorta is normal in size. The IVC is normal in size a nd collapses >50% with inspiration. PERICARDIUM Trace pericardial effusion with no evidence of hemodynamic compromise. Other Information Study Quality: Adequate Conclusion LV is small in size with moderate concentric hypertrophy. Overall systolic function is hyperdynamic w ith a resting LV gradient of 28 mmHG, pt unable to valsalva due to ALOC. LVEF is 80%. RV appears normal in size and hyperdynamic. RVSP is estimated at 48 mmHG. The left atrium size is normal. Trileaflet AV appears sclerotic without stenosis. No insufficiency. MV is thickened with no annular calcification or stenosis. Trace mitral regurgitation. The tricuspid valve is normal is thickened with bowing. Trace to mild tricuspid regurgitation The pulmonary valve is normal in structure. Trace pulmonic regurgitation. Trace pericardial effusion with no evidence of hemodynamic compromise.
[2025-04-30] VITALS (7 sets, daily range): BP systolic 122–174; BP diastolic 72–119; PULSE 80–99; RESP 18–30; TEMP 97.3–98.6; O2SAT 96–99
[2025-04-30] MEDS: labetalol 20mg/4ml (5mg/ml) syringe IV ONE (04:19)
[2025-04-30] MEDS: HYDROchlorothiazide 25mg tablet PO SCH (08:21)
--- NOTE | 2025-04-30 10:47 | PROGRESS NOTE ---
Daily Progress Note Providers to CC ~ Antibiotic Timeout Antibiotic Ordered?: No Subjective Chief complaint-none Review of systems negative for all 10 systems reviewed Objective Vital Signs Date Time Temp Pulse Resp B/P (MAP) Pulse Ox O2 Delivery O2 Flow Rate FiO2 04/30/25 08:21 146 04/30/25 08:00 Room Air 04/30/25 07:00 18 146/104 (118) 04/30/25 06:00 98.3 96 04/28/25 20:47 0 Result Diagram: 04/29/25 0730 04/29/25 0730 Alert and oriented times three in no acute distress. Patient's shows severe attitude when I did try to discuss with her the need to stop fentanyl abuse HEENT normocephalic nontraumatic head with periorbital edema CVS- first and second heart sounds were positive with a loud 4/6 systolic murmur best heard in the left sternal border Respiratory system is decreased breath sounds bilateral bases with minimal crackles Abdomen is soft scaphoid benign bowel sounds are positive nontender nondistended extremities-bilateral plus one edema Problem\Assessment\Plan Assessment and plan -hypertensive emergency improving slowly Continue home med with lisinopril and Norvasc Use clonidine and hydralazine p.r.n. added metoprolol -Hypokalemia Replace per protocol Monitor K and Mag levels -systolic murmur check echocardiogram Also will help rule out CHF -diastolic dysfunction Echo done Conclusion LV is small in size with moderate concentric hypertrophy. Overall systolic function is hyperdynamic with a resting LV gradient of 28 mmHG, pt unable to valsalva due to ALOC. LVEF is 80%. RV appears normal in size and hyperdynamic. RVSP is estimated at 48 mmHG. The left atrium size is normal. Trileaflet AV appears sclerotic without stenosis. No insufficiency. MV is thickened with no annular calcification or stenosis. Trace mitral regurgitation. The tricuspid valve is normal is thickened with bowing. Trace to mild tricuspid regurgitation The pulmonary valve is normal in structure. Trace pulmonic regurgitation. Trace pericardial effusion with no evidence of hemodynamic compromise. -acute renal failure Secondary to dehydration Resolved -hypokalemia Replace per protocol --history of polysubstance abuse Tox screen positive for fentanyl Of substance abuse navigator consulted Continue DVT prophylaxis Patient is a full code Possible DC home in a.m. if blood pressure better controlled Date of Service: Apr 30, 2025 Billing Provider: CASANDRA MUELLER MD Common Visit Codes: [id number] INP/OBS CARE(HIGH) CASANDRA MUELLER MD Apr 30, 2025 10:47
[2025-04-30] MEDS ORDERED: METO50TA16 PO (14:31)
--- NOTE | 2025-04-30 14:34 | DISCHARGE SUMMARY ---
Discharge Summary Providers to CC ~ Discharge Summary Admission Diagnosis: HTN Emergency Hospital Course DATE OF ADMISSION: 04/28/2025 DATE OF DISCHARGE: 05/01/2025 Discharge Diagnosis\Comment: Hypertensive emergency fentanyl abuse Operations\Procedures: None Consultants: None Complications: None Condition on DC: Stable New Medications: Metoprolol Tartrate (Metoprolol Tartrate) 50 Mg Tablet 50 MG PO BID for 30 Days, #30 TAB Continued Medications: Amlodipine Besylate (Amlodipine Besylate) 10 Mg Tablet 1 TAB PO DAILY for 30 Days, #30 TAB 0 Refills [clonidine] () 0.2 MG PO TID for 30 Days, #90 TAB Hydrochlorothiazide (Hydrochlorothiazide) 50 Mg Tablet 1 TAB PO DAILY for 30 Days, #30 TAB 0 Refills Discontinued Medications: Home Med List (No Home Medications) Each Unable to Obtain Medications (Unable to Obtain Medications) Each pt not talking, uncoopertive Discharge Summary: Patient is a 35-year-old admitted with History of Present Illness This is a 35-year-old female with a known history of polysubstance use including fentanyl and methamphetamine use two days ago, chronic hypertension, and prior episodes of hypertensive emergency. She presents today with altered mental status, headache, vomiting started today. She denies chest pain, shortness of breath, or visual disturbance. On exam, although she was minimally cooperative, she was alert, oriented, and able to follow commands. No focal neurological deficits were appreciated. Of note, she was admitted to [facility] on February 06, 2025 for a similar presentation, during which she was diagnosed with hypertensive emergency, prerenal acute kidney injury, and electrolyte disturbance. However, she left A at that time. She is known to be nonadherent to antihypertensive medications a legs access to primary care. Physical exam patient is alert and oriented x3 no acute distress lying down comfortably speaking in full sentences HEENT normocephalic nontraumatic head CVS first and second heart sounds are regular rate rhythm No murmurs gallops or rubs Respiratory system is clear to auscultate bilaterally no rales rhonchi crackles or wheezing Abdomen is soft bowel sounds are positive nontender nondistended Extremities no clubbing cyanosis or edema Hospital course patient is a 35-year-old with a longstanding history of fentanyl abuse. Patient who has consulted on with a substance abuse navigator. Options for rehab given to the patient. Patient's blood pressure was elevated into 200s over 100s. We resumed her home meds as well as added hydralazine and clonidine p.r.n. and added metoprolol. Her blood pressure is now better controlled she is being discharged home with advice to abstain from any fentanyl or any other illicit drug abuse intake her medications more regularly I think this all transpired from her lack of taking her medications regularly. *Problems/Diagnosis: (1) Hypertension Status: Acute (2) Fentanyl dependence Status: Acute Total Time Spent on D/C: > 30 Minutes Date of Service: May 01, 2025 Billing Provider: CASANDRA UMELLER MD Common Visit Codes: [id number]/[id number] DISCH DAY >30min CASANDRA MUELLER MD Apr 30, 2025 14:34
[2025-04-30] MEDS ORDERED: metoprolol tartrate 50mg tablet PO SCH (20:00)
== END 2025-04-30 17:43 | disposition home or self-care (01) | DRG 199 ==
LOC: ER 11:30 → ED HOLD 19:46 → PCU 3S 21:59
PROVIDERS: ADMIT Internal Medicine Critical Care Medicine; ATTEND Internal Medicine
DX: I16.1 Hypertensive emergency (principal); N17.0 Acute kidney failure with tubular necrosis; I21.A1 Myocardial infarction type 2; E86.0 Dehydration; I10 Essential (primary) hypertension; F11.20 Opioid dependence, uncomplicated; F17.210 Nicotine dependence, cigarettes, uncomplicated; E87.6 Hypokalemia; F19.10 Other psychoactive substance abuse, uncomplicated; Z79.899 Other long term (current) drug therapy
CPT/HCPCS: 36415; 70450; 71045; 80053; 80305; 80320; 81003; 82570; 83690; 83880; 84300; 84484; 84703; 85025; 87081; 93306; 96361; 96374; 97116; 97161; 99285; A6258; G0378; J0360; J1644; J2060; J2310; J2405; J3490; J7030

== ENCOUNTER 2025-07-20 06:24 | Emergency (ER) | payer MEDICAID ==
[~2025-07-20] VITALS: Ht 165.1 cm; Wt 60.0 kg
[~2025-07-20 06:24] MED LIST changes: +METO50TA16 PO; -NO HOME MEDS; -UNABLE TO OBTAIN
[2025-07-20] MEDS ORDERED: DIPH25CA83 PO (07:27)
--- NOTE | 2025-07-20 07:28 | Physician Documentation ---
History of Present Illness ~ General Chief Complaint: General Stated Complaint: SEE CHIEF COMPLAINT M BLS Time Seen by MD: 06:28 Primary Medical Doctor: none History of Present Illness Initial Comments 30 year old female requesting methadone and a sleeping aid. Denies other medical complaints. perihilar and bibasilar airspace opacities Medication Reconciliation Allergies: Coded Allergies: No Known Allergies (Unverified , 02/06/25) Scheduled Amlodipine Besylate (Amlodipine Besylate), 1 TAB PO DAILY Hydrochlorothiazide (Hydrochlorothiazide), 1 TAB PO DAILY Metoprolol Tartrate (Metoprolol Tartrate), 50 MG PO BID [clonidine], 0.2 MG PO TID Past Medical History Past Medical History: Hypertension Past Surgical History: no surgical history Drug Use: other Lives In: Home Review of Systems All Other Systems at this time: Reviewed and Negative Physical Exam Physical Exam Vital Signs: RN Vital Signs have been reviewed: Yes, Temperature: 97.9, Source: Oral, Heart Rate: 70, Respiratory Rate: 16, BP: 253/169, Pulse Oximetry: 97, Weight: 60.000 Oxygen Flow Rate: 0 Physical Exam HEENT: PERRL, moist oral mucosa, EOMI Pulmonary: No respiratory distress MSK: no deformity Skin: w/d/i, no rash Neuro: alert, nonfocal Psych: normal affect Progress Results/Orders Results/Orders Vital Signs 07/20/25 07/20/25 06:29 06:38 Temp 97.9 Pulse 70 Resp 18 16 B/P (MAP) 253/169 Pulse Ox 97 O2 Flow Rate 0 Medical Decision Making Findings 35 year old female requesting sleep medication and methadone. Explained that she has to get methadone from the clinic and offered suboxone. She refused. Will discharge with Rx benadryl. Differential Diagnosis Ddx = OUD, medication noncompliance, insomnia Departure Disposition: HOME / SELF CARE / HOMELESS Impression: Primary Impression: Opioid use disorder Additional Impression: Insomnia Condition: Stable Discharge Instructions: Insomnia Referrals: NO PRIMARY CARE PROVIDER (PCP) Prescriptions Diphenhydramine Hcl (Benadryl) 25 Mg Capsule 2 CAP PO HS for 30 Days, #60 CAP 0 Refills Prov: RAMOS OROSCO MD 07/20/25 Education Educated: Patient Educated regarding: diagnosis, treatment, prognosis, need for follow up Signature Scribe Signature: . Attestation: . RAMOS OROSCO MD Jul 20, 2025 07:28
[2025-07-20] MEDS ORDERED: ibuprofen tablet 400 MG TABLET PO ONE (07:35)
[2025-07-20] MEDS: normal saline 1000ml 1,000 ML IV ONE (07:58)
[2025-07-20] MEDS: labetalol 20mg/4ml (5mg/ml) syringe IV ONE (09:31)
[2025-07-20] MEDS: hydrALAZINE 20mg/ml inj. IV ONE (09:45)
[2025-07-20 10:31] VITALS: BP 176/127; PULSE 78; RESP 16; TEMP 98; O2SAT 100
[2025-07-20] MEDS ORDERED: TIZA4CAP PO (20:43)
== END 2025-07-20 10:34 | disposition home or self-care (01) ==
LOC: ER 06:25
DX: F11.10 Opioid abuse, uncomplicated (principal); G47.00 Insomnia, unspecified; I10 Essential (primary) hypertension; Z79.899 Other long term (current) drug therapy
CPT/HCPCS: 96374; 96375; 99285; J0360; J3490; J7030

== ENCOUNTER 2025-07-20 14:31 | Emergency (ER) | payer MEDICAID ==
[~2025-07-20] VITALS: Ht 165.1 cm; Wt 75.0 kg
[~2025-07-20 14:31] MED LIST changes: +DIPH25CA83 PO
--- NOTE | 2025-07-20 16:12 | RADIOLOGY REPORT ---
EXAM: DI CHEST,SINGLE VIEW HISTORY: HTN COMPARISON: DI CHEST,SINGLE VIEW on DOS: 04/28/25, DI CHEST,SINGLE VIEW on DOS: 02/06/25 TECHNIQUE: Portable upright AP view of the chest was performed. FINDINGS: No pneumothorax, consolidative infiltrates, or pulmonary edema. The heart is not enlarged. There is S shaped thoracolumbar scoliosis. IMPRESSION: No acute intrathoracic process.
--- NOTE | 2025-07-20 16:14 | ELECTROCARDIOGRAPH REPORT ---
[facility] Test Date: 2025-07-20 Test Time: 16:11:25 Pat Name: BOONE KELLEY Department: [facility] Patient ID: [facility]-[id number] Room: Gender: F [employer] Developer: : [id number] Requested By: TY MCMILLAN Order Number: [id number] Reading MD: Measurements Intervals [place] Rate: 81 P: 83 IL: 149 QRS: 79 QRSD: 96 T: 74 QT: 424 QTc: 493 Interpretive Statements Sinus rhythm Right atrial enlargement Borderline prolonged QT interval Please click the below link to view image of tracing.
[2025-07-20 16:58] LABS: MEAN PLATELET VOLUME 7.4 FL (7.4-10.4); RED CELL DISTRIBUTION WIDTH 16.6 % (11.5-14.5)
[2025-07-20 17:08] LABS: CREATININE 0.88 MG/DL (0.40-0.90); ETHANOL < 10 MG/DL (<10); TOTAL CARBON DIOXIDE 27.6 MMOL/L (24-32); eCRCL 79 ML/MIN; eGFR 87 ML/MIN
[2025-07-20 17:13] LABS: HCG SERUM QL NEGATIVE
[2025-07-20] MEDS ORDERED: hydrALAZINE 20mg/ml inj. IV PRN (18:20)
--- NOTE | 2025-07-20 18:44 | Physician Documentation ---
History of Present Illness ~ Chief Complaint: Hypertension Stated Complaint: ABD PAIN Time Seen by MD: 14:59 Primary Medical Doctor: none Mode of Arrival: EMS HPI Patient is seen today with complaints of opiate withdrawal. Patient states her last use of fentanyl was couple of days ago. She denies any diarrhea but does admit to nausea but currently no vomiting. Patient denies any chest pain or shortness of breath or abdominal pain. Patient was seen just earlier this morning and treated for hypertension with multiple antihypertensive medications including hydralazine and beta blockers. Patient came back because she states she is not feeling well. She has no other concern or complaint at this time. Medication Reconciliation Allergies: Coded Allergies: No Known Allergies (Unverified , 02/06/25) Scheduled Amlodipine Besylate (Amlodipine Besylate), 1 TAB PO DAILY Diphenhydramine Hcl (Benadryl), 2 CAP PO HS Hydrochlorothiazide (Hydrochlorothiazide), 1 TAB PO DAILY Metoprolol Tartrate (Metoprolol Tartrate), 50 MG PO BID [clonidine], 0.2 MG PO TID Past Medical History Past Medical History: Hypertension Past Surgical History: no surgical history Drug Use: other Lives In: Home Review of Systems Constitutional: Denies: chills, fever, weakness Eyes: Denies: pain, blurred vision ENT: Denies: ear pain, nose pain, throat pain, mouth pain Respiratory: Denies: cough, shortness of breath Cardiovascular: Denies: chest pain, palpitations Gastrointestinal: Denies: abdominal pain, nausea, vomiting Genitourinary: Denies: burning, dysuria Female Genitalia: Denies: vaginal discharge, pelvic pain Neurological: Denies: headache, dizziness Musculoskeletal: Denies: pain, swelling Integumentary: Denies: rash, lesions Allergic/Immunologic: Denies: hives, itching Hematologic/Lymphatic: Denies: no symptoms reported Psychiatric: Denies: depression, anxiety Physical Exam Vital Signs: Temperature: 97.8, Source: Temporal, Heart Rate: 97, Respiratory Rate: 16, BP: 222/163, Pulse Oximetry: 96, Weight: 75.000 Oxygen Flow Rate: 0 Physical Exam General: Awake and Alert, no acute distress. Patient does appear to be ill from opiate withdrawal. HEENT: Conjunctiva pink, Sclera clear, Mucus Membranes moist. Neck: Supple without masses and tenderness. Resp: Unlabored. Lungs clear to auscultation bilaterally. Heart: Regular Rate and rhythm, normal S1 and S2 without murmur, rub or gallop. Abdomen: Soft and non tender no organomegaly Extremities: No cyanosis,clubbing or edema. Skin: Warm and Dry. Progress Results/Orders Results/Orders Orders - TY MCMILLAN R PAC Urinalysis, Cult If Indicated (07/20/25 15:43) Drug Screen, Urine (07/20/25 15:43) Chest,Single View (07/20/25 16:00) Hydralazine Inj. (Apresoline Inj.) (07/20/25 18:20) Completed Orders - TY MCMILLAN R PAC Cbc/Diff (07/20/25 15:43) Lipase (07/20/25 15:43) Ethanol (07/20/25 15:43) Hcg Serum Ql (07/20/25 15:43) Electrocardiogram (07/20/25 15:43) BMP (07/20/25 15:43) Clonidine Tablet (Catapres Tablet) (07/20/25 15:43) Chest,Single View (07/20/25 16:00) Tizanidine Tablet (Zanaflex Tablet) (07/20/25 17:37) Amlodipine Tablet (Norvasc Tablet) (07/20/25 17:39) Hydralazine Inj. (Apresoline Inj.) (07/20/25 18:19) Medications Received in ER Medications (Trade) Dose Ordered Sig/Alida Route PRN Reason Start Time Stop Time Status Last Admin Dose Admin (Catapres tablet) 0.2 mg ONCE STAT PO 07/20/25 15:43 07/20/25 15:46 DC 07/20/25 15:57 0.2 MG (Zanaflex tablet) 4 mg ONCE STAT PO 07/20/25 17:37 07/20/25 17:46 DC 07/20/25 18:08 4 MG (Norvasc tablet) 5 mg ONCE STAT PO 07/20/25 17:39 07/20/25 17:46 DC 07/20/25 18:08 5 MG (Apresoline inj.) 10 mg ONCE STAT IV 07/20/25 18:19 07/20/25 18:26 DC 07/20/25 19:29 10 MG Vital Signs 07/20/25 07/20/25 07/20/25 07/20/25 14:38 15:34 15:39 16:32 Temp 97.8 Pulse 92 82 87 Resp 19 22 26 24 B/P (MAP) 191/156 234/167 (189) 223/162 (182) Pulse Ox 97 98 98 O2 Flow Rate 0 0 07/20/25 07/20/25 07/20/25 07/20/25 18:04 18:08 18:24 19:29 Pulse 95 91 97 84 Resp 22 16 B/P (MAP) 242/16 (91) 222/163 (182) Pulse Ox 96 96 O2 Flow Rate 0 0 07/20/25 20:13 Temp 97.8 Pulse 102 Resp 33 B/P (MAP) 170/115 (133) O2 Flow Rate 0 Laboratory Tests Test 07/20/25 16:29 White Blood Count 9.9 Red Blood Count 4.97 Hemoglobin 13.5 Hematocrit 41.0 Mean Corpuscular Volume 82.4 Mean Corpuscular Hemoglobin 27.1 Mean Corpuscular Hemoglobin Concent 32.8 L Red Cell Distribution Width 16.6 H Platelet Count 415 Mean Platelet Volume 7.4 Neutrophils (%) (Auto) 87.9 H Lymphocytes (%) (Auto) 8.0 L Monocytes (%) (Auto) 3.7 Eosinophils (%) (Auto) 0 Basophils (%) (Auto) 0.4 Neutrophils # (Auto) 8.7 H Lymphocytes # (Auto) 0.8 L Monocytes # (Auto) 0.4 Eosinophils # (Auto) 0.0 Basophils # (Auto) 0.0 CBC Comment Sodium Level 138 Potassium Level 3.7 Chloride Level 99 Carbon Dioxide Level 27.6 Anion Gap 11 Blood Urea Nitrogen 17 Creatinine 0.88 Estimated GFR/1.73 m2 87 BUN/Creatinine Ratio 19.3 Glucose Level 134 H Calcium Level 9.5 Albumin 4.0 Lipase 15 L Human Chorionic Gonadotropin, Qual Negative Chemistry Comments Ethyl Alcohol Level < 10 Medical Decision Making Findings Patient is seen today with complaints of opiate withdrawal. Patient states her last use of fentanyl was couple of days ago. She denies any diarrhea but does admit to nausea but currently no vomiting. Patient denies any chest pain or shortness of breath or abdominal pain. Patient was seen just earlier this morning and treated for hypertension with multiple antihypertensive medications including hydralazine and beta blockers. Patient came back because she states she is not feeling well. She has no other concern or complaint at this time. Patient was given clonidine 0.2 mg by mouth without any significant improvement in blood pressure with systolic still being over to 40 mm Hg. Patient was given hydralazine 10 mg IV which did lower her blood pressure to 165 systolic. Patient was given comfort meds for opiate withdrawal and addiction. I recommended patient enter recovery center or medically assisted treatment Center with Suboxone or methadone. Patient will return to ED with any worsening, concerning or changing symptoms Departure Disposition: 01 HOME / SELF CARE / HOMELESS Impression: Primary Impression: Benign hypertension Additional Impressions: Fentanyl dependence Opiate withdrawal Condition: Stable Discharge Instructions: Hypertension, Adult, [id number] Additional Instructions: Patient was given clonidine 0.2 mg by mouth without any significant improvement in blood pressure with systolic still being over to 40 mm Hg. Patient was given hydralazine 10 mg IV which did lower her blood pressure to 165 systolic. Patient was given comfort meds for opiate withdrawal and addiction. I recommended patient enter recovery center or medically assisted treatment Center with Suboxone or methadone. Patient will return to ED with any worsening, concerning or changing symptoms Referrals: NO PRIMARY CARE PROVIDER (PCP) Prescriptions Tizanidine Hcl (Zanaflex) 4 Mg Capsule 1 CAP PO Q8H for 7 Days, #21 CAP 0 Refills Prov: TY MCMILLAN 07/20/25 Signature Scribe Signature: No scribe Attestation: No scribe TY MCMILLAN PAC Jul 20, 2025 18:44
[2025-07-20] MEDS: hydrALAZINE 20mg/ml inj. IV STA (19:29)
[2025-07-20 20:41] VITALS: BP 165/103; PULSE 100; RESP 18; TEMP 97; O2SAT 97
[2025-07-20] MEDS ORDERED: TIZA4CAP PO (20:43)
== END 2025-07-20 21:27 | disposition home or self-care (01) ==
LOC: ER 14:31
DX: I10 Essential (primary) hypertension (principal); F11.23 Opioid dependence with withdrawal; Z79.899 Other long term (current) drug therapy
CPT/HCPCS: 36415; 71045; 80048; 80320; 83690; 84703; 85025; 93005; 96374; 99285; J0360